=== PATIENT | male | born 1955 | race Caucasian/White ===

== ENCOUNTER 2020-09-01 07:22 | Emergency (ER) | payer OTHER, MEDICAID ==
[~2020-09-01] VITALS: Ht 172.7 cm; Wt 90.7 kg
[2020-09-01 08:18] LABS: ABSOLUTE BASOPHILS 0.1 thou/uL (0.0-0.2); ABSOLUTE EOSINOPHILS 0.2 thou/uL (0.0-0.7); ABSOLUTE LYMPHOCYTES 1.5 thou/uL (0.8-5.3); BASOPHILS 0.7 %; EOSINOPHILS 1.7 %; HEMATOCRIT 38.9 % (42.0-52.0); HEMOGLOBIN 12.9 gm/dL (14.0-18.0); LYMPHOCYTES 11.2 %; MCH 27.6 pg (26.0-34.0); MCHC 33.2 g/dL (28.0-37.0); MCV 83.3 fL (80.0-100.0); MONOCYTES 7.2 %; MPV 7.1 fl. (7.2-11.1); NUCLEATED RBCS 0 /100WBC; PLATELET COUNT* 276 thou/uL (150-400); POLYS 79.2 %; RBC 4.67 mil/uL (4.50-6.00); RDW-CV 14.4 % (10.5-14.5); WBC 13.8 thou/uL (4.0-11.0)
[2020-09-01 08:27] LABS: CALCIUM 8.4 mg/dL (8.5-10.1); CREATININE 0.8 mg/dL (0.6-1.3); POTASSIUM 3.8 mmol/L (3.5-5.1)
[2020-09-01 08:39] LABS: ALBUMIN 2.5 g/dL (3.4-5.0); TOTAL BILIRUBIN 0.3 mg/dL (<0.1-1.0)
[2020-09-01 09:41] LABS: URINE BILIRUBIN NEGATIVE (Negative); URINE BLOOD NEGATIVE (Negative); URINE CLARITY CLEAR; URINE COLOR YELLOW; URINE GLUCOSE-RANDOM NEGATIVE (Negative); URINE KETONES NEGATIVE (Negative); URINE LEUKOCYTES-REFLEX NEGATIVE (Negative); URINE NITRITE-REFLEX NEGATIVE (Negative); URINE PROTEIN NEGATIVE (Negative); URINE SPECIFIC GRAVITY <= 1.005 (1.005-1.030); URINE UROBILINOGEN 0.2 E.U./dl (0.2-1.0)
[2020-09-01] MEDS ORDERED: ZPAK PO (10:23)
[2020-09-01] MEDS ORDERED: TORADOL 10 MG T10 MG PO (10:26)
[2020-09-01 10:45] VITALS: BP 153/71
--- NOTE | 2020-09-01 11:13 | EKG ---
[place] [address] ELECTROCARDIOGRAM REPORT Name: DENVER HARGROVE Room: [facility]#: [id number] Admission: 09/01/20 Attend Phys: Discharge: 09/01/20 Date of : 59 Date of Service: 09/01/20800 Report #: [id number] THIS REPORT FOR: //name// [facility] ED Test Date: 2020-09-01 Test Time: 08:01:35 Pat Name: DENVER HARGROVE Department: Room: Gender: Office Nurse: [facility] : 1955 Requested By: Jaden Sexton Order Number: [id number] MD: Torito Marques Measurements Intervals [place] Rate: 68 P: 268 [place]: 122 QRS: 41 QRSD: 94 T: 73 QT: 500 QTc: 532 Interpretive Statements Ectopic atrial rhythm Nonspecific T abnormalities, lateral leads Prolonged QT interval Baseline wander in lead(s) V5 No previous ECG available for comparison Electronically Signed On 09-01-2020 11:13:09 CDT by Torito Marques [email or web address] <ELECTRONICALLY SIGNED> By: Torito Marques MD, [facility] 09/01/20 1113 0801 0801 Torito Marques MD, [facility] /EPI
== END 2020-09-01 10:45 | disposition home or self-care (01) ==
LOC: M.ERS 07:22
PROVIDERS: Family Medicine
DX: J18.9 Pneumonia, unspecified organism (principal); R10.84 Generalized abdominal pain; Z20.822 Contact with and (suspected) exposure to COVID-19